=== PATIENT | female | born 1955 | race African-American/Black ===

== ENCOUNTER → 2020-03-28 | Outpatient (CLI) | payer MEDICAID ==
[~2020-03-28] MED LIST: AMLO5TAB88 PO; ASPI-1497 PO; LEVVL SQ; METF-414 PO; METO-539 PO
== END | disposition home or self-care (01) ==
LOC: LAB 10:04
PROVIDERS: ATTEND Specialist
DX: Z01.812 Encounter for preprocedural laboratory examination (principal); R05 Cough; Z20.828 Contact with and (suspected) exposure to other viral communicable diseases
CPT/HCPCS: C9803; U0003

== ENCOUNTER 2020-03-29 06:09 | Day surgery (SDC) | payer MEDICARE, MEDICAID ==
[~2020-03-29] VITALS: Ht 30.5 cm; Wt 0.5 kg
[2020-03-29] MEDS ORDERED: LIDOCAINE HCL 1% 20ML VIAL (Pyxis) INJ ONE ×2 (07:24→08:42)
[2020-03-29] MEDS ORDERED: FENTANYL CITRATE/PF 50MCG/ML 2ML VIAL ONE (07:24)
[2020-03-29] MEDS ORDERED: MIDAZOLAM HCL 2 MG/2 ML VIAL ONE (07:25)
[2020-03-29] MEDS ORDERED: IODIXANOL 320MG/ML 100 ML BOTTLE IV ONE (07:25)
[2020-03-29] MEDS ORDERED: ASPI-1497 PO (07:41)
[2020-03-29] MEDS ORDERED: METO-539 PO (07:41)
[2020-03-29] MEDS ORDERED: AMLO5TAB88 PO (07:41)
[2020-03-29] MEDS ORDERED: METF-414 PO (07:43)
[2020-03-29] MEDS ORDERED: LEVVL SQ (07:43)
[2020-03-29] MEDS ORDERED: ACETAMINOPHEN 325MG TABLET PO PRN (09:00)
[2020-03-29] MEDS ORDERED: ATROPINE SULFATE 1MG/10ML SYR IV PRN (09:00)
[2020-03-29] MEDS ORDERED: MORPHINE SULFATE 2 MG/ML CPJ (NOT FOR IM USE) IV PRN (09:00)
[2020-03-29] MEDS ORDERED: ONDANSETRON HCL 4MG/2ML INJ IV PRN (09:00)
[2020-03-29] MEDS ORDERED: HEPARIN SODIUM 1,000 UNIT/1ML VIAL IV ONE (10:00)
[2020-03-29] MEDS ORDERED: INSULIN REGULAR (HUMULIN R) 300UNITS/3ML VIAL SUBCUT NR (11:00)
== END 2020-03-29 13:00 | disposition home or self-care (01) ==
LOC: CCL 06:09
PROVIDERS: ATTEND Specialist
DX: I25.10 Atherosclerotic heart disease of native coronary artery without angina pectoris (principal); I10 Essential (primary) hypertension; E11.9 Type 2 diabetes mellitus without complications; E78.5 Hyperlipidemia, unspecified; Z79.84 Long term (current) use of oral hypoglycemic drugs; Z79.82 Long term (current) use of aspirin; Z79.899 Other long term (current) drug therapy; Z80.3 Family history of malignant neoplasm of breast; Z98.890 Other specified postprocedural states
CPT/HCPCS: 82962; 93458; C1769; C1893; J1644; J1815; J2250; J3010; J3490; Q9967

== ENCOUNTER 2023-10-07 18:06 | Emergency (ER) | payer MEDICARE, OTHER ==
[~2023-10-07] VITALS: Ht 165.1 cm; Wt 90.7 kg
[2023-10-07 18:28] VITALS: O2SAT 96
[2023-10-07] MEDS: ACETAMINOPHEN 325MG TABLET PO ONE (19:58)
[2023-10-07] MEDS ORDERED: LIDO700A15 TP (20:53)
[2023-10-07] MEDS ORDERED: NAPR-1176 MT (20:53)
[2023-10-07 21:11] VITALS: BP 158/79; PULSE 82; RESP 16; TEMP 98.6
== END 2023-10-07 21:29 | disposition home or self-care (01) ==
LOC: ER 18:06
DX: M25.571 Pain in right ankle and joints of right foot (principal); M25.562 Pain in left knee; E11.9 Type 2 diabetes mellitus without complications; Z79.899 Other long term (current) drug therapy
CPT/HCPCS: 99284; 73560; 73600; L1830